=== PATIENT | male | born 1995 | race Caucasian/White ===

== ENCOUNTER 2017-08-07 16:20 | Emergency (ER) | payer BC ==
[~2017-08-07] VITALS: Ht 190.5 cm; Wt 95.5 kg
[2017-08-07 16:23] VITALS: BP 194/91; TEMP 98
[2017-08-07 17:24] VITALS: PULSE 75
== END 2017-08-07 17:25 | disposition home or self-care (01) ==
LOC: COL.ER 16:20
DX: S63.502A Unspecified sprain of left wrist, initial encounter (principal); X50.0XXA Overexertion from strenuous movement or load, initial encounter; Y93.67 Activity, basketball